=== PATIENT | male | born 1955 ===

== ENCOUNTER 2018-06-20 08:09 | Day surgery (SDC) | payer BC ==
[~2018-06-20 08:09] MED LIST: ADRENALINE P/F ONE; HURRICAINE ONE 20% TOPICAL SPRAY MM; LIDOCAINE VISCOUS 2% ONE; NACL 0.9% 1000 ML 1,000 ML IV SCH; WATER FOR IRRIG STERILE IR ONE; XYLOCAINE 1% 20 mL ONE
[2018-06-20] MEDS ORDERED: SUBLIMAZE ONE (08:51)
[2018-06-20] MEDS ORDERED: LIDOCAINE VISCOUS 2% ONE (08:51)
[2018-06-20] MEDS ORDERED: DIPRIVAN 10 MG/ML IV ONE (08:52)
[2018-06-20] MEDS ORDERED: LIDOCAINE VISCOUS 2% PO ONE ×2 (08:56→08:57)
[2018-06-20] MEDS ORDERED: KETALAR ONE (08:57)
[2018-06-20] MEDS ORDERED: VERSED ONE (08:58)
[2018-06-20] MEDS ORDERED: HURRICAINE ONE 20% TOPICAL SPRAY MM (08:58)
--- NOTE | 2018-06-20 09:50 | Anesthesia Consultation ---
Anesthesia Consult and Med Hx - Airway Anesthetic Teeth Evaluation: Good ROM Head & Neck: Adequate Mental/Hyoid Distance: Adequate Mallampati Class: Class II Intubation Access Assessment: Probably Good - Pulmonary Exam CTA: Yes - Cardiac Exam Cardiac Exam: RRR - Pre-Operative Health Status ASA Pre-Surgery Classification: ASA3 Proposed Anesthetic Plan: MAC Nerve Block: Topical nasal, post pharyngeal, and tracheal - Pulmonary Hx Smoking: Yes Hx Pneumonia: Yes (HX of Necrotizing Pneumonia) - Cardiovascular System Hx Hypertension: Yes - Gastrointestinal Hx Gastroesophageal Reflux Disease: Yes
--- NOTE | 2018-06-20 09:50 | Anesthesia Day of Surgery ---
Anesthesia Day of Surgery - Day of Surgery Patient H&P Reviewed: Yes Patient is NPO: Yes Beta Blockers: No Cardiac Clearance: No Pulmonary Clearance: Yes
--- NOTE | 2018-06-20 10:06 | Short Stay Summary ---
Short Stay Documentation Date of service: 06/20/18 Narrative H&P: 62 y/o male with right sided pneumonia for several weeks. Needs bronchoscopy to help with definitive diagnosis as he is not producing sputum. No fever. has had 10lb weight loss. Former smoker and history of cancer in the family. - History H&P: obtained from office Past Medical History: hypertension Past Surgical History: No surgical history Social history: smoking (quit but smoked for several years) - Allergies and Medications Current Medications: Allergies Penicillins Allergy (Mild, Verified 06/19/18 11:28) Unknown FEVER Home Medications Medication Instructions Recorded Confirmed Last Taken Type Doxazosin 2 mg PO DAILY 06/19/18 06/19/18 06/19/18 History Multiple Vitamins 1 tab PO DAILY 06/19/18 06/19/18 06/19/18 History Omeprazole 40 mg PO DAILY 06/19/18 06/19/18 06/19/18 History Pravastatin 40 mg PO DAILY 06/19/18 06/19/18 06/19/18 History Ranitidine HCl 300 mg PO HS 06/19/18 06/19/18 06/19/18 History Zosyn 4.5 gm/100 ml Galaxy Bag 4.5 gm IV Q8H 06/19/18 06/19/18 06/19/18 History amLODIPine 10 mg PO DAILY 06/19/18 06/20/18 06/20/18 History Active Medications Sodium Chloride (Nacl 0.9% 1000 Ml) 1,000 mls @ 50 mls/hr IV DIRECT RICHARD - Physical exam General appearance: no acute distress, well-nourished Integumentary: no rash, no growths, no abnormal pigmentation HEENT: Atraumatic, PERRLA, EOMI Lungs: Clear to auscultation, Other (diminished air movement on right) Breasts: deferred Heart: Regular rate, Normal S1, Normal S2, No murmurs Gastrointestinal: normal, normoactive bowel sounds Male Genitourinary: deferred Rectal Exam: deferred Extremities: no ischemia, pulses intact, pulses symmetrical Neurological: Normal gait, Normal speech, Strength at 5/5 X4 ext - Brief post op/procedure progress note Date of procedure: 06/20/18 Pre-op diagnosis: Pneumonia Post-op diagnosis: same Procedure: Flexible bronch with brushings and right upper lobe wash. After obtaining informed consent, patient brought to endo suite. After achieving adequate sedation, scope passed through right nare without difficulty. Trachea normal. Left side normal. Abnormal mucosa seen in right main stem bronchi. Brushing done here. Narrow of airway in right main stem but all airways patent. Wash done in right upper lobe. Anesthesia: MAC Findings: As stated above Surgeon: FUAD CLANCY Estimated blood loss: none Pathology: list (cytology of right main stem brushing) Condition: stable - Disposition Condition at discharge: Good Disposition: DC-01 TO HOME OR SELFCARE - Discharge Diagnoses (1) Pneumonia Status: Acute Short Stay Discharge Plan Follow up with: CODY MOULTON JR, MD [Primary Care Provider] - 7 Days
[2018-06-20 10:15] VITALS: BP 114/73
[2018-06-20] MEDS ORDERED: FLUSH HEPARIN IV ONE (10:16)
== END 2018-06-20 08:10 | disposition home or self-care (01) ==
LOC: GIO 08:09
PROVIDERS: ATTEND Specialist
DX: J18.9 Pneumonia, unspecified organism (principal); E78.00 Pure hypercholesterolemia, unspecified; I10 Essential (primary) hypertension; K21.9 Gastro-esophageal reflux disease without esophagitis; Z98.890 Other specified postprocedural states; Z79.01 Long term (current) use of anticoagulants; Z79.899 Other long term (current) drug therapy; Z88.0 Allergy status to penicillin; Z87.891 Personal history of nicotine dependence
CPT/HCPCS: 31623; 87102; 87116; 88104; 88112; J0171; J1642; J2250; J2704; J3010; J7030